=== PATIENT | male | born 1965 | race Caucasian/White ===

== ENCOUNTER 2017-02-10 13:47 | Emergency (ER) | payer MEDICARE, MEDICAID ==
[~2017-02-10] VITALS: Ht 175.3 cm; Wt 77.0 kg
[~2017-02-10 13:47] MED LIST: INSU100V28 IJ; LEVVL SQ; METF500T4 PO
[2017-02-10] MEDS ORDERED: MORPHINE SULFATE 4 MG/ML CPJ (NOT FOR IM USE) IV STA (14:22)
[2017-02-10] MEDS ORDERED: ONDANSETRON HCL 4MG/2ML VIAL IV STA (14:22)
[2017-02-10 15:04] LABS: CHLORIDE 103 mEq/L (98-107)
[2017-02-10 15:05] LABS: PROTHROMBIN TIME 10.2 sec (9.4-11.6)
[2017-02-10 15:10] LABS: BASOPHILS % 0.4 % (0.0-2.0); EOSINOPHILS % 3.5 % (0.0-5.0); HEMATOCRIT. 42.7 % (42.0-52.0); HEMOGLOBIN. 14.4 g/dL (14.0-18.0); LYMPHOCYTES % 8.8 % (20.0-50.0); MEAN CORPUSCULAR HEMOGLOBIN 28.3 pg (28.0-32.0); MEAN CORPUSCULAR VOLUME 83.6 fL (80.0-94.0); MEAN PLATELET VOLUME 7.7 fl (7.4-10.4); MONOCYTES % 5.4 % (2.0-8.0); NEUTROPHILS % 81.9 % (40.0-76.0); PLATELET 234 x1000/uL (130-400); RED BLOOD CELL COUNT 5.11 mill/uL (4.7-6.1); RED CELL DISTRIBUTION WIDTH 13.8 % (11.6-14.6)
[2017-02-10 15:12] LABS: CARBON DIOXIDE 26 mEq/L (21-32); ETHANOL BLOOD < 10 mg/dL
[2017-02-10] MEDS ORDERED: MORPHINE SULFATE 4 MG/ML CPJ (NOT FOR IM USE) IV ONE (17:00)
[2017-02-10] MEDS ORDERED: ONDANSETRON HCL 4MG/2ML VIAL IV ONE (17:00)
[2017-02-10 17:08] LABS: *AMPHETAMINES SCREEN URINE PRESUMTIVE POSITIVE (NEGATIVE); *BARBITURATES SCREEN URINE NEGATIVE (NEGATIVE); *BENZODIAZEPINES SCREEN URINE NEGATIVE (NEGATIVE); *COCAINE SCREEN URINE NEGATIVE (NEGATIVE); CANNABINOID URINE SCREEN NEGATIVE (NEGATIVE); METHADONE URINE SCREEN NEGATIVE (NEGATIVE); OPIATES URINE SCREEN NEGATIVE (NEGATIVE); PHENCYCLIDINE URINE SCREEN NEGATIVE (NEGATIVE)
[2017-02-10 17:15] LABS: CLARITY URINE CLOUDY (CLEAR); GLUCOSE URINE 3+ (NEGATIVE); KETONES URINE NEGATIVE (NEGATIVE); LEUKOCYTE ESTERASE URINE NEGATIVE (NEGATIVE); NITRITE URINE NEGATIVE (NEGATIVE); OCCULT BLOOD URINE 3+ (NEGATIVE); PH URINE 6.5 (4.5-8.0); PROTEIN URINE 4+ (NEGATIVE); SPECIFIC GRAVITY URINE 1.034 (1.005-1.030); UROBILINOGEN URINE 0.2 E.U./dL (0.2-1.0)
[2017-02-10 17:20] LABS: COLOR URINE BLOODY (YELLOW)
[2017-02-10 21:03] VITALS: BP 127/62
== END 2017-02-10 21:11 | disposition home or self-care (01) ==
LOC: ER 14:04
DX: S00.81XA Abrasion of other part of head, initial encounter (principal); R31.9 Hematuria, unspecified; R10.30 Lower abdominal pain, unspecified; E78.00 Pure hypercholesterolemia, unspecified; I10 Essential (primary) hypertension; E11.9 Type 2 diabetes mellitus without complications; F17.200 Nicotine dependence, unspecified, uncomplicated; Z79.4 Long term (current) use of insulin; X58.XXXA Exposure to other specified factors, initial encounter; Y93.89 Activity, other specified; Y92.89 Other specified places as the place of occurrence of the external cause; Y99.8 Other external cause status
CPT/HCPCS: 36415; 51702; 71010; 74176; 80053; 80305; 81001; 83605; 85025; 85610; 86850; 86900; 86901; 93005; 96374; 96375; 96376; 99285; G0482; J2270; J2405; A4315

== ENCOUNTER 2017-04-09 19:58 | Emergency (ER) | payer MEDICARE, MEDICAID ==
[~2017-04-09] VITALS: Ht 170.2 cm; Wt 97.0 kg
[2017-04-09 20:11] VITALS: BP 146/91
== END 2017-04-09 22:09 | disposition left against medical advice (07) ==
LOC: ER 21:41
DX: Z46.6 Encounter for fitting and adjustment of urinary device (principal); Z53.21 Procedure and treatment not carried out due to patient leaving prior to being seen by health care provider

== ENCOUNTER 2017-08-08 09:07 | Day surgery (SDC) | payer MEDICARE, MEDICAID ==
[~2017-08-08] VITALS: Ht 170.2 cm; Wt 91.0 kg
[2017-08-08 10:08] VITALS: BP 108/67
[2017-08-08] MEDS ORDERED: BUPIVACAINE HCL/PF 0.5% (5MG/ML) 10ML ONE (12:43)
[2017-08-08] MEDS ORDERED: GENTAMICIN SULF 40MG/ML 2ML VIAL ONE (12:43)
[2017-08-08] MEDS ORDERED: LIDOCAINE HCL/PF 1% 10 MG/ML 5ML VIAL ONE (12:43)
[2017-08-08] MEDS ORDERED: BACITRACIN 50,000 UNITS/VIAL ONE ×2 (12:48→12:50)
[2017-08-08] MEDS ORDERED: NORMAL SALINE 0.9% 10 ML SYR ONE (12:50)
[2017-08-08] MEDS ORDERED: LACTATED RINGERS 1,000 ML IV SCH (13:30)
[2017-08-08] MEDS ORDERED: VANCOMYCIN 1 G PREMIX 200 ML IV SCH (13:45)
[2017-08-08] MEDS ORDERED: METF500T4 PO (14:30)
[2017-08-08] MEDS ORDERED: LANTUSUD SUBCUT (14:30)
[2017-08-08] MEDS ORDERED: VANC5VIA IV (14:30)
[2017-08-08] MEDS ORDERED: INSASP SUBCUT (14:30)
[2017-08-08] MEDS ORDERED: ALBU2.5V13 IH (14:30)
[2017-08-08] MEDS ORDERED: PROPOFOL 200MG/20ML VIAL IV ONE (16:14)
[2017-08-08] MEDS ORDERED: FENTANYL CITRATE/PF 50MCG/ML 2ML VIAL ONE (16:22)
[2017-08-08] MEDS ORDERED: MIDAZOLAM HCL 2 MG/2 ML VIAL ONE (16:22)
[2017-08-08] MEDS ORDERED: DIPHENHYDRAMINE 50MG/ML VIAL ONE (16:23)
[2017-08-08] MEDS ORDERED: MORPHINE SULFATE 4 MG/ML CPJ (NOT FOR IM USE) IV PRN (17:15)
== END 2017-08-08 21:00 | disposition home or self-care (01) ==
LOC: ER 10:06 → ORIP 10:30 → UNDOADMIN 10:30 → OR 17:20
PROVIDERS: ATTEND Podiatrist Foot & Ankle Surgery
DX: E11.621 Type 2 diabetes mellitus with foot ulcer (principal); E11.69 Type 2 diabetes mellitus with other specified complication; M86.672 Other chronic osteomyelitis, left ankle and foot; L97.528 Non-pressure chronic ulcer of other part of left foot with other specified severity; E11.42 Type 2 diabetes mellitus with diabetic polyneuropathy; J44.9 Chronic obstructive pulmonary disease, unspecified; I10 Essential (primary) hypertension; F17.210 Nicotine dependence, cigarettes, uncomplicated; Z85.46 Personal history of malignant neoplasm of prostate; Z79.4 Long term (current) use of insulin; Z79.899 Other long term (current) drug therapy; Z90.49 Acquired absence of other specified parts of digestive tract; E11.628 Type 2 diabetes mellitus with other skin complications
CPT/HCPCS: 28122; 28820; 73630; 82962; 87070; 87075; 87077; 87186; 87205; 88304; 88305; 88311; 93005; 99285; J1200; J1580; J2250; J3010; J3370; J3490; J7120; A4216; J2704

== ENCOUNTER 2018-03-05 17:35 | Emergency (ER) | payer MEDICARE, MEDICAID ==
[~2018-03-05] VITALS: Ht 182.9 cm; Wt 99.0 kg
[~2018-03-05 17:35] MED LIST changes: +ALBU2.5V13 IH; +INSASP SUBCUT; +LANTUSUD SUBCUT; +METF-414 PO; -METF500T4 PO; +VANC5VIA IV
[2018-03-05 17:38] VITALS: BP 146/89
[2018-03-05 20:14] LABS: CLARITY URINE CLEAR (CLEAR); COLOR URINE YELLOW (YELLOW); KETONES URINE NEGATIVE (NEGATIVE); LEUKOCYTE ESTERASE URINE NEGATIVE (NEGATIVE); NITRITE URINE POSITIVE (NEGATIVE); OCCULT BLOOD URINE TRACE (NEGATIVE); PH URINE 5.5 (4.5-8.0); PROTEIN URINE NEGATIVE (NEGATIVE); SPECIFIC GRAVITY URINE 1.035 (1.005-1.030)
== END 2018-03-05 23:45 | disposition left against medical advice (07) ==
LOC: ER 18:08
DX: R53.1 Weakness (principal); R42 Dizziness and giddiness; Z53.21 Procedure and treatment not carried out due to patient leaving prior to being seen by health care provider
CPT/HCPCS: 82962; 87077; 87186